=== PATIENT | female | born 1990 | race Caucasian/White ===

== ENCOUNTER → 2016-12-28 | Outpatient (CLI) | payer BC ==
[~2016-12-28] MED LIST: AMBIEN10 MG PO; BIOTIN5 M1 PO; BUSPAR5 M1 PO; GLUCOPHAGE500 M1 PO; IBUPROFEN PO; OMEPRAZOLE40 M1 PO; SYNTHROID0.05 MG PO; TRI-PREVIFEM T1 EACH PO; ZOLOFT100 MG PO
--- NOTE | ~2016-12-28 | EKG ---
PATIENT: THEODORA TUCKER UNIT #: [id number] Ventricular Rate: 71 BPM Atrial Rate: 71 BPM P-R Interval: 126 ms QRS Duration: 78 ms Q-T Interval: 392 ms QTC Calculation(Bezet): 425 ms P [place]: 37 degrees Calculated R [place]: 26 degrees Calculated T [place]: 21 degrees Diagnosis Line: Normal sinus rhythm Diagnosis Line: Normal ECG Diagnosis Line: No previous ECGs available Diagnosis Line: Confirmed by JESSICA EUGENE MD ([id number]) on 12/28/2016 Diagnosis Line: 5:46:29 PM INTERPRETING MD: VALORIE GODWIN
[2016-12-28 10:27] LABS: URINE APPEARANCE CLEAR; URINE BILIRUBIN NEG (NEG); URINE BLOOD NEG (NEG); URINE COLOR YELLOW; URINE GLUCOSE NEG (NEG); URINE KETONE NEG (NEG); URINE LEUKOCYTE ESTERASE NEG (NEG); URINE NITRATE NEG (NEG); URINE PH 5.5 (5-8); URINE PROTEIN NEG (NEG); URINE SPECIFIC GRAVITY 1.027 (1.003-1.035); URINE UROBILINOGEN 0.2 MG/DL (NEG)
[2016-12-28 10:32] LABS: URINE SOURCE CLEAN CATCH
[2016-12-28 10:50] LABS: BLOOD UREA NITROGEN 13 mg/dL (9-23); CALCIUM SERUM 9.4 mg/dL (8.4-10.2); CARBON DIOXIDE 23 mmol/L (22-31); CHLORIDE 107 mmol/L (100-111); CREATININE SERUM 0.4 mg/dL (0.6-1.4); GLOM FILT RATE Estimated ABOVE60 mL/min (>60); GLUCOSE FASTING 88 mg/dL (70-110); SODIUM 140 mmol/L (135-145)
== END | disposition home or self-care (01) ==
LOC: CAMB 08:17
PROVIDERS: Surgery
DX: Z01.818 Encounter for other preprocedural examination (principal); D17.79 Benign lipomatous neoplasm of other sites
CPT/HCPCS: 36415; 80048; 81003; 93005

== ENCOUNTER → 2017-01-04 | Day surgery (SDC) | payer BC ==
--- NOTE | ~2017-01-04 | OR ---
Unit #: [id number] #: [id number] Patient: THEODORA TUCKER [id number] [address] [place], [place] [address] [id number] O MR#: [id number] NAME: THEODORA TUCKER ROOM: Date of Procedure: 01/04/2017 Admission Date: 01/04/2017 Surgeon: Yusuf Gomez M.D. : 1990 Attending Physician: Yusuf Gomez M.D. Primary Care Physician: Jarod Reeves M.D. OPERATIVE REPORT PREOPERATIVE DIAGNOSIS Enlarging painful lipoma, left forehead. POSTOPERATIVE DIAGNOSIS Enlarging painful lipoma, left forehead. PROCEDURE PERFORMED Excision of enlarging painful lipoma, left forehead 2 cm with layered closure. ANESTHESIA General LMA anesthesia. FINDINGS The lesion was consistent with a lipoma. SPECIMENS Sent to pathology. COMPLICATIONS None apparent. CONDITION The patient tolerated the procedure well. INDICATIONS FOR PROCEDURE The patient is a 26-year-old white female, who presents at this time with enlarging subcutaneous mass of the left forehead. CT scan revealed this to be consistent with a lipoma. She presents at this time for excision for pathologic diagnosis and treatment. DESCRIPTION OF PROCEDURE After obtaining informed consent as well as receiving preoperative antibiotics, the patient was brought to the operating room and after adequate general LMA anesthesia was obtained, had the forehead prepped and draped in a sterile fashion. A small transverse incision was made in the direction of the skin lines and parallel to any wrinkles. It was taken down through the subcutaneous tissues with electrocautery to the level of the lesion. The lesion was consistent with a lipoma and it was dissected free from the surrounding structures. It was sent to pathology. The wound was irrigated. Hemostasis was obtained with the Bovie. The subcutaneous tissues were reapproximated with interrupted 3-0 Vicryl Unit #: [id number] #: [id number] Patient: THEODORA TUCKER suture taking a bite of the base of the wound in order to obliterate any space. The skin was closed with a 5-0 Monocryl using a subcuticular stitch. An occlusive Dermabond dressing was placed. Needle counts, sponge counts, and instrument counts were all correct as reported by the scrub nurse x2. The patient went from the operating room to recovery room in stable condition. Dictated by... Brooke Soni/edgard TD: 01/04/2017 09:21 JOB #: [id number] [facility] OPERATIVE REPORT X Yusuf Gomez MD X PROCEDURE OPERATIVE NOTE
== END | disposition home or self-care (01) ==
LOC: CSUR 05:22
DX: D17.0 Benign lipomatous neoplasm of skin and subcutaneous tissue of head, face and neck (principal); E65 Localized adiposity; E03.9 Hypothyroidism, unspecified; F41.1 Generalized anxiety disorder; G47.00 Insomnia, unspecified; E28.2 Polycystic ovarian syndrome; Z87.19 Personal history of other diseases of the digestive system; Z87.440 Personal history of urinary (tract) infections; Z98.818 Other dental procedure status; Z98.890 Other specified postprocedural states; Z79.899 Other long term (current) drug therapy; Z82.3 Family history of stroke; Z80.3 Family history of malignant neoplasm of breast; Z82.49 Family history of ischemic heart disease and other diseases of the circulatory system
CPT/HCPCS: 82947; 84703; 88304; J0690; J1885; J2250; J2405; J3010